=== PATIENT | male | born 1965 | race Caucasian/White ===

== ENCOUNTER 2017-01-20 08:33 | Outpatient (CLI) | payer MEDICARE, MEDICAID ==
--- NOTE | 2017-01-20 20:02 | XRAY Report ---
EXAM: RIGHT CALCANEUS RADIOGRAPHY EXAM DATE: 01/20/2017 09:09 a.m. CLINICAL HISTORY: Pain with shoveling. COMPARISON: None. TECHNIQUE: 2 views. FINDINGS: Bones: No traumatic or destructive bony abnormalities. Posterior calcaneal enthesophyte noted. Joints: Normal. No subluxations. Soft Tissues: Normal. No soft tissue swelling. IMPRESSION: Posterior enthesophyte, otherwise unremarkable calcaneus radiography. [facility] Referring Provider Line: [phone] SITE ID: [id number]
== END 2017-01-20 08:34 | disposition home or self-care (01) ==
LOC: DI 08:33
PROVIDERS: ATTEND Family Medicine
DX: M77.31 Calcaneal spur, right foot (principal)

== ENCOUNTER 2017-05-10 11:31 | Outpatient (CLI) | payer MEDICARE, MEDICAID ==
--- NOTE | 2017-05-11 10:40 | XRAY Report ---
ABDOMEN: 05/10/2017 INDICATION: Abdominal bloating and left lower quadrant tenderness. TECHNIQUE: Two frontal views of the abdomen. FINDINGS: Normal bowel gas pattern. No gross free air on frontal views only. No abnormal calcifications. Bones appear grossly unremarkable. IMPRESSION: NO ACUTE ABDOMINAL FINDINGS. JOB #: [id number] EXT JOB #: [id number] [facility]
== END 2017-05-10 11:32 | disposition home or self-care (01) ==
LOC: DI 11:31
PROVIDERS: ATTEND Family Medicine
DX: R10.814 Left lower quadrant abdominal tenderness (principal); R14.0 Abdominal distension (gaseous)
CPT/HCPCS: 74000

== ENCOUNTER 2017-06-14 21:01 | Outpatient (CLI) | payer MEDICARE, MEDICAID ==
--- NOTE | 2017-06-14 22:04 | Ultrasound Report ---
EXAM: LEFT LOWER EXTREMITY VENOUS ULTRASOUND EXAM DATE: 06/14/2017 09:55 PM. CLINICAL HISTORY: ACUTE ON CHRONIC LEFT LEG EDEMA. NEW ONSET PAIN. COMPARISON: None. TECHNIQUE: Real-time sonographic vascular imaging was performed by the banner painter through the lower extremity utilizing both color-flow and Doppler spectral analysis. Multiple charter representative static magdalena ges were saved for review. FINDINGS: Common Femoral Vein (CFV): Normal. CFV-GSV Junction: Normal. Profunda Femoral Vein (PFV): Normal. Femoral Vein (FV) Prox: Normal. Femoral Vein (FV) Mid: Normal. Femoral Vein (FV) Dist: Normal. Popliteal Vein: Normal. Posterior Tibial Veins: Not well seen. Peroneal Veins: Not well seen. Other: Subcutaneous edema in the calf. IMPRESSION: No evidence for deep venous thrombosis. [facility] Referring Provider Line: [phone] SITE ID: [id number]
== END 2017-06-14 21:02 | disposition home or self-care (01) ==
LOC: DI 21:01
PROVIDERS: ATTEND Family Medicine
DX: R60.0 Localized edema (principal); M79.605 Pain in left leg

== ENCOUNTER 2017-07-17 09:18 | Outpatient (CLI) | payer MEDICARE, MEDICAID | END 2017-07-17 09:19 | disposition home or self-care (01) | LOC: DI 09:18 | PROVIDERS: ATTEND Internal Medicine Cardiovascular Disease | DX: Z01.810 Encounter for preprocedural cardiovascular examination (principal); R60.0 Localized edema; I51.7 Cardiomegaly | CPT/HCPCS: 93306 ==

== ENCOUNTER 2017-07-19 10:53 | Outpatient (CLI) | payer MEDICARE, MEDICAID ==
[2017-07-19 11:26] LABS: CALCIUM 9.7 mg/dL (8.5-10.3)
== END 2017-07-19 10:54 | disposition home or self-care (01) ==
LOC: LAB 10:53
PROVIDERS: ATTEND Internal Medicine Cardiovascular Disease
DX: Z79.899 Other long term (current) drug therapy (principal)
CPT/HCPCS: 36415; 80048

== ENCOUNTER 2017-08-19 01:41 | Emergency (ER) | payer MEDICARE, MEDICAID ==
[2017-08-19] MEDS ORDERED: LORazepam 0.5 MG TABLET PO STA (01:54)
[2017-08-19] MEDS ORDERED: DEXAMETHASONE 10 MG/ML VIAL PO STA (01:54)
[2017-08-19] MEDS ORDERED: CHERRY SYRUP 10 ML UDC PO ONE (02:13)
[2017-08-19 02:38] VITALS: BP 152/107
--- NOTE | 2017-08-19 02:40 | CT Preliminary Report ---
Exam: CT CERVICAL SPINE W/O IMPRESSION: 1. Expected postsurgical changes after C3-C5 anterior fusion with mild prevertebral edema, likely rel ated to recent surgery. 2. No evidence of hardware failure or loosening. 3. No acute cervical spine fracture. [facility] SITE ID: [id number]
--- NOTE | 2017-08-19 02:40 | XRAY Report ---
EXAM: CHEST RADIOGRAPHY EXAM DATE: 08/19/2017 02:28 AM. CLINICAL HISTORY: Dyspnea, surgery yesterday with intubation. COMPARISON: 05/10/2015. TECHNIQUE: 1 view. FINDINGS: Lungs/Pleura: No focal opacities evident. No pleural effusion. No pneumothorax. Mediastinum: Within exam limitations, the cardiomediastinal contour is normal. Other: None. IMPRESSION: Stable negative single view chest. [facility] Referring Provider Line: [phone] SITE ID: [id number]
--- NOTE | 2017-08-19 02:45 | CT Report ---
EXAM: CT CERVICAL SPINE WITHOUT CONTRAST DATE: 08/19/2017 02:27 AM. HISTORY: Neck pain, status post surgery. COMPARISONS: None. TECHNIQUE: Thin-section axial images were acquired of the cervical spine without contrast. Post-proce ssing: Coronal and sagittal reformats. Other: None. In accordance with CT protocol optimization, one or more of the following dose reduction techniques w ere utilized for this exam: automated exposure control, adjustment of mA and/or KV based on patient s ize, or use of iterative reconstructive technique. FINDINGS: Alignment: The normal cervical lordosis is straightened, as expected after surgery. No scoliosis or s pondylolisthesis is appreciated. Bones: No acute cervical spine fracture is identified. Anterior fusion changes are present from C3 th rough C5 without evidence of hardware failure or loosening. Interspace Levels/Facets: C1-C2: Unremarkable. C2-C3: Moderate bilateral foraminal narrowing is present due to facet arthropathy. The spinal canal i s patent. C3-C4: The spinal canal is patent. There is severe bilateral foraminal narrowing due to uncovertebral hypertrophy. C4-C5: There is severe left and mild right foraminal narrowing due to uncovertebral hypertrophy. The spinal canal is patent. C5-C6: Mild left frontal narrowing is present due to uncovertebral hypertrophy. The spinal canal and right foramen are patent. C6-C7: Unremarkable. C7-T1: Bilateral facet arthropathy is present without spinal canal or foraminal stenosis. Musculature: Normal. No fatty atrophy. Other: Mild prevertebral edema is noted, likely related to recent surgery. The lung apices are clear. IMPRESSION: 1. Expected postsurgical changes after C3 through C5 anterior fusion with mild prevertebral edema, li capri related to recent surgery. 2. No evidence of hardware failure or loosening. 3. No acute cervical spine fracture. [facility] Referring Provider Line: [phone] SITE ID: [id number]
--- NOTE | 2017-08-19 02:51 | ED Physician Documentation ---
PD HPI NECK PAIN - Stated complaint Stated Complaint: PAIN S/P NECK SURGERY - Chief complaint Chief Complaint: General - History obtained from History obtained from: Patient, Family - History of Present Illness Timing - onset: Yesterday Timing - details: Gradual onset, Still present Quality: Pain, Aching Worsened by: Movement, Palpation Similar symptoms before: Work up / diagnostics, Treatment Recently seen: Surgery - Additional information Additional information: Patient is a 52 year old male presenting to the emergency department for neck pain and anxiety. Patient had multiple bone spurs on his cervical spine removed the day before. Patient spent a night in the hospital and was discharged home. Patient has had multiple surgeries and has a high pain tolerance. patient states that he has been taking up to 6 mg of dilaudid at a time. Patient states that he still has pain and has a dry mouth and trouble breathing. Patient denies any new trauma or accidents. Upon initial evaluation in the emergency department patient is alert but anxious. Review of Systems Constitutional: denies: Fever, Chills Eyes: reports: Reviewed and negative Ears: reports: Reviewed and negative Nose: reports: Reviewed and negative Throat: reports: Sore throat Cardiac: denies: Chest pain / pressure, Palpitations Respiratory: reports: Dyspnea. denies: Wheezing GI: denies: Nausea, Vomiting : reports: Reviewed and negative Skin: reports: Laceration (s) Musculoskeletal: reports: Neck pain Neurologic: denies: Generalized weakness, Focal weakness, Numbness Psychiatric: reports: Anxiety PD PAST MEDICAL HISTORY - Past Medical History Cardiovascular: Atrial fibrillation Respiratory: None Neuro: None Endocrine/Autoimmune: None GI: None : None HEENT: None Psych: None Musculoskeletal: None Derm: None - Past Surgical History Past Surgical History: No Ortho: Knee replacement Cardiovascular: Other - Present Medications Home Medications: Ambulatory Orders Medication Instructions Recorded Confirmed Ibuprofen 600 mg PO TID #20 tablet 05/10/15 Methocarbamol [Robaxin] 500 mg PO Q6H PRN #25 tablet 05/10/15 Dextroamphetamine/Amphetamine 1 tab PO BID 08/19/17 08/19/17 [Adderall 20 mg Tablet] Furosemide [Lasix] 1 tab PO QPM 08/19/17 08/19/17 Furosemide [Lasix] 2 tab PO DAILY 08/19/17 08/19/17 HYDROmorphone [Dilaudid] 6 mg PO Q8HR PRN 08/19/17 08/19/17 Metformin HCl 1 tab PO BID 08/19/17 08/19/17 Oxycodone HCl 5 mg PO BID #6 capsule 08/19/17 - Allergies Allergies/Adverse Reactions: Allergies Allergy/AdvReac Type Severity Reaction Status Date / Time No Known Drug Allergies Allergy Verified 08/19/17 01:55 - Social History Does the pt smoke?: Yes Smoking Status: Current every day smoker Does the pt drink ETOH?: Yes Does the pt have substance abuse?: No - Immunizations Immunizations are current?: Yes PD ED PE NORMAL - Vitals Vital signs reviewed: Yes - General General: Alert and oriented X 3 - Cardiac Cardiac: No murmur - Respiratory Respiratory: No respiratory distress - Abdomen Abdomen: Soft - Extremities Extremities: No deformity - Neuro Neuro: Alert and oriented X 3, No motor deficit, Normal speech Eye Opening: Spontaneous PD ED PE EXPANDED - General General: Alert, Anxious, In Pain - HEENT HEENT: Dry mucous membranes, Pharynx normal. No: Pharyngeal erythema - Neck Neck: Soft tissue TTP, Other (anterior surgical site covered with steri strips, no bleeding or surrounding erythema. ) - Psych Psych: Anxious Results - Vitals Vitals: Vital Signs - 24 hr 08/19/17 08/19/17 08/19/17 01:45 01:51 02:37 Temperature 36.1 C L Heart Rate 105 H 86 99 Respiratory 24 24 24 Rate Blood Pressure 145/104 H 186/109 H 152/107 H O2 Saturation 98 90 L 94 Oxygen O2 Source Nasal cannula Oxygen Flow Rate 4 - Rads (name of study) ct cervical spine Radiology: Final report received (post surgical changes, no other acute findings ) chest x-ray Radiology: Final report received (no acute disease process) PD MEDICAL DECISION MAKING - ED course Complexity details: reviewed old records, reviewed results, re-evaluated patient , considered differential, d/w patient, d/w family ED course: Patient was seen and examined at bedside. Patient was anxious and diaphoretic. Patient's partner stated that the patient does have a history of anxiety. patient was treated with ativan 0.5mg and imaging was ordered. Patient was placed on supplemental oxygen. Patient's partner stated that the patient does have JENNIFER and whenhe lies down his O2 sats range in the high 80s and low 90s. Patient's imaging was within normal limits. Patient was treated with dilaudid IM. Patient was given a few pain medications to go home with. Family stated that they would follow up with the surgical team tomorrow. Patient required no further inpatient work up and was stable for discharge with outpatient followup. Departure - Departure Disposition: Home, Self Care Clinical Impression: Neck pain Condition: Good Instructions: Fusion Cervical Dc Follow-Up: Rogers Trevino MD [Primary Care Provider] - Tomorrow Prescriptions: Oxycodone HCl 5 mg PO BID #6 capsule Comments: Your images were within normal limits. You were treated with dilaudid here in the emergency department and oxycodone to go home with. It is important that you call your surgeon tomorrow for further pain management. You may return to the emergency department at any time for new, worsening or uncontrollable symptoms.
[2017-08-19] MEDS ORDERED: HYDROmorphone 1 MG/ML SYRINGE IM STA (03:02)
[2017-08-19] MEDS ORDERED: oxyCODONE 5 MG TABLET PO STA (03:03)
== END 2017-08-19 03:23 | disposition home or self-care (01) ==
LOC: ED 01:41
DX: M54.2 Cervicalgia (principal); F41.9 Anxiety disorder, unspecified; I48.91 Unspecified atrial fibrillation; Z98.1 Arthrodesis status; F17.200 Nicotine dependence, unspecified, uncomplicated
CPT/HCPCS: 71045; 72125; 96372; 99283; 99284; A9270; J1170

== ENCOUNTER 2017-08-25 00:23 | Outpatient (CLI) | payer MEDICARE, MEDICAID | END 2017-08-25 00:24 | disposition critical access hospital (66) | LOC: EMS 00:23 | PROVIDERS: ATTEND Surgery | DX: R40.2211 Coma scale, best verbal response, none, in the field [EMT or ambulance] (principal); R73.9 Hyperglycemia, unspecified | CPT/HCPCS: A0425; A0427 ==

== ENCOUNTER 2017-08-25 00:51 | Emergency (ER) | payer MEDICARE, MEDICAID ==
--- NOTE | 2017-08-25 01:06 | ED Physician Documentation ---
PD HPI OVERDOSE - Stated complaint Stated Complaint: Poss OD - History obtained from History obtained from: Patient, Family, EMS - History of Present Illness Timing - onset: Today Subtance(s) ingested: Multiple, Narcotic, Benzo Associated symptoms: Resp depression, Decreased responsiveness. 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 Patient had surgery on his cervical spine about two weeks ago. Since that time patient has had a hard time controlling his pain. Tonight patient states that he was in a lot of pain and accidentally took to many medications. called ems because patient was diaphoretic and sonorous. Patient was hyposic on room air and was treated with a total of 0.8mg of narcan. Upon initial evaluation in the emergency department patient was awake, alert and oriented but anxious. Review of Systems Constitutional: denies: Fever, Chills Eyes: reports: Reviewed and negative Ears: reports: Reviewed and negative Nose: reports: Reviewed and negative Throat: reports: Reviewed and negative Cardiac: denies: Chest pain / pressure, Palpitations Respiratory: reports: Dyspnea. denies: Cough, Wheezing GI: reports: Nausea. denies: Abdominal Pain, Vomiting, Constipation, Diarrhea : reports: Reviewed and negative Skin: reports: Other (diaphoretic) Musculoskeletal: reports: Neck pain Neurologic: denies: Generalized weakness, Focal weakness, Numbness Psychiatric: reports: Anxiety PD PAST MEDICAL HISTORY - Past Medical History Cardiovascular: Atrial fibrillation Respiratory: None Neuro: None Endocrine/Autoimmune: None GI: None : None HEENT: None Psych: None Musculoskeletal: None Derm: None - Past Surgical History Past Surgical History: No Ortho: Knee replacement Cardiovascular: Other - Present Medications Home Medications: Ambulatory Orders Medication Instructions Recorded Confirmed Dextroamphetamine/Amphetamine 1 tab PO BID 08/19/17 08/19/17 [Adderall 20 mg Tablet] Furosemide [Lasix] 1 tab PO QPM 08/19/17 08/19/17 Furosemide [Lasix] 2 tab PO DAILY 08/19/17 08/19/17 HYDROmorphone [Dilaudid] 6 mg PO Q8HR PRN 08/19/17 08/19/17 Metformin HCl 1 tab PO BID 08/19/17 08/19/17 Oxycodone HCl 5 mg PO Q4HR PRN 08/25/17 08/25/17 - Allergies Allergies/Adverse Reactions: Allergies Allergy/AdvReac Type Severity Reaction Status Date / Time No Known Drug Allergies Allergy Verified 08/25/17 01:03 - Social History Does the pt smoke?: Yes Smoking Status: Current every day smoker Does the pt drink ETOH?: Yes Does the pt have substance abuse?: No - Immunizations Immunizations are current?: Yes PD ED PE EXPANDED - General General: Disheveled, poorly kept, Other (diaphoretic and ill appearing) - Respiratory Respiratory: Labored, Gasping, Accessory mm use, Rhonchi, Decreased breath sounds, Right upper lobe, Right middle lobe, Right lower lobe, Left upper lobe, Left lower lobe - Derm Derm: Diaphoretic - GCS Eye Opening: To Voice Motor: Obeys Commands Verbal: Oriented Total: 14 - Psych Psych: Anxious Results - Vitals Vitals: Vital Signs - 24 hr 08/25/17 08/25/17 08/25/17 00:53 01:30 02:00 Temperature 36.1 C L Heart Rate 125 H 114 H 110 H Respiratory 24 25 H 21 Rate Blood Pressure 160/80 H 156/88 H 156/88 H O2 Saturation 93 91 L 90 L 08/25/17 08/25/17 08/25/17 02:22 02:32 02:44 Temperature 36.7 C Heart Rate 109 H 104 H Respiratory 16 Rate Blood Pressure 153/97 H O2 Saturation 90 L 08/25/17 03:07 Temperature Heart Rate 108 H Respiratory 24 Rate Blood Pressure 135/90 H O2 Saturation 91 L Oxygen O2 Source Non-rebreather mask Oxygen Flow Rate 10 - Labs Labs: Laboratory Tests 08/25/17 08/25/17 08/25/17 01:20 01:20 01:20 WBC 21.1 H RBC 6.36 H Hgb 17.3 Hct 55.1 H MCV 86.7 MCH 27.1 MCHC 31.3 L RDW 16.0 H Plt Count 277 MPV 7.7 Neut # 17.0 H Lymph # 1.8 [place] # 2.1 H Eos # 0.1 Baso # 0.1 Absolute Nucleated RBC 0.04 Nucleated RBC % 0.2 Manual Slide Review Indicated Platelet Estimate NORMAL (130-450,000) Platelet Morphology 1+ LARGE PLATELETS RBC Morph Micro Appear 1+ POLYCHROMASIA VBG pH 7.347 VBG pCO2 57.2 H VBG pO2 77.2 H VBG HCO3 30.7 H VBG Total CO2 32.4 H VBG O2 Saturation 94.9 H VBG Base Excess 3.0 H Sodium 132 L Potassium 4.1 Chloride 88 L Carbon Dioxide 31 Anion Gap 13.0 BUN 37 H Creatinine 1.9 H Estimated GFR (MDRD) 38 L Glucose 440 H Lactic Acid Calcium 8.8 Total Bilirubin 0.7 AST 114 H ALT 148 H Alkaline Phosphatase 70 Troponin I B-Natriuretic Peptide Total Protein 6.8 Albumin 3.9 Globulin 2.9 Albumin/Globulin Ratio 1.3 Lipase 54 H Serum Ketones NEGATIVE 08/25/17 08/25/17 08/25/17 01:20 01:20 02:10 WBC RBC Hgb Hct MCV MCH MCHC RDW Plt Count MPV Neut # Lymph # [place] # Eos # Baso # Absolute Nucleated RBC Nucleated RBC % Manual Slide Review Platelet Estimate Platelet Morphology RBC Morph Micro Appear VBG pH VBG pCO2 VBG pO2 VBG HCO3 VBG Total CO2 VBG O2 Saturation VBG Base Excess Sodium Potassium Chloride Carbon Dioxide Anion Gap BUN Creatinine Estimated GFR (MDRD) Glucose Lactic Acid 2.0 Calcium Total Bilirubin AST ALT Alkaline Phosphatase Troponin I 0.21 B-Natriuretic Peptide 664 H Total Protein Albumin Globulin Albumin/Globulin Ratio Lipase Serum Ketones - Rads (name of study) chest x-ray Radiology: Final report received, EMP read contemporaneously (read by radiology as normal but it appears to have patchy infiltrates) PD MEDICAL DECISION MAKING - ED course Complexity details: reviewed old records, reviewed results, re-evaluated patient , considered differential, d/w patient, d/w family, d/w banking consultant ED course: Patient was seen and examined at bedside. Patient was diaphoretic and tachycardic. patient was continued on the oxygen face mask. IV access was gained and labs were drawn. chest x-ray was performed. Chest x-ray was read as negative but patient appeared to have bilateral infiltrates as well as a leukocytosis of 21. patient was started on zosyn and levaquin due to the fear of hospital acquired pneumonia. Patient was treated with additional narcan. Patient's labs also revealed acute kidney injury with a creatinine of 1.9 base is 1. Patient was started on bipap and a nitro drip. Patient required inpatient ICU admission but there were no available ICU beds in the hospital. [facility], where the patient had his surgery was contacted and the case was discussed with Dr. Oviedo who accepted the patient in transfer. Patient was placed on a narcan drip and transferred in critical condition. Departure - Departure Disposition: 02 Transfer Acute Care Hosp Clinical Impression: Hypoxia, Pneumonia Condition: Critical
[2017-08-25 01:34] LABS: BASOPHILS # (AUTO) 0.1 10^3/uL (0.0-0.1); BASOPHILS % (AUTO) 0.3 %; EOSINOPHILS # (AUTO) 0.1 10^3/uL (0.0-0.7); EOSINOPHILS % (AUTO) 0.3 %; HGB - HEMOGLOBIN 17.3 g/dL (14.0-18.0); LYMPHOCYTES # (AUTO) 1.8 10^3/uL (1.5-3.5); LYMPHOCYTES % (AUTO) 8.4 %; MEAN CORPUSCULAR HEMOGLOBIN 27.1 pg (27.0-31.0); MEAN CORPUSCULAR HGB CONC 31.3 g/dL (32.0-36.0); MEAN CORPUSCULAR VOLUME 86.7 fL (80.0-94.0); MEAN PLATELET VOLUME 7.7 fL (7.4-11.4); MONOCYTES # (AUTO) 2.1 10^3/uL (0.0-1.0); MONOCYTES % (AUTO) 10.2 %; NEUTROPHILS % (AUTO) 80.8 %; PLT - PLATELET COUNT 277 10^3/uL (130-450); RED BLOOD COUNT 6.36 10^6/uL (4.70-6.10); WHITE BLOOD COUNT 21.1 x10^3/uL (4.8-10.8)
[2017-08-25 01:35] LABS: KETONES, SERUM (ACETEST) NEGATIVE (NEGATIVE); VBG PCO2 57.2 mmHg (41-51); VBG PH 7.347 (7.31-7.41)
[2017-08-25 01:36] LABS: VBG PO2 77.2 mmHg (25-47); VBG TOTAL CO2 32.4 mmol/L (24-29)
--- NOTE | 2017-08-25 01:39 | XRAY Preliminary Report ---
Exam: XR CHEST 1 VIEW X-RAY IMPRESSION: Hypoventilatory single view chest with cardiomegaly but without definite acute process. [id number]
[2017-08-25 01:40] LABS: ALBUMIN 3.9 g/dL (3.2-5.5); ALBUMIN/GLOBULIN RATIO 1.3 (1.0-2.2); ALKALINE PHOSPHATASE 70 IU/L (42-121); ALT ALANINE AMINOTRANSFERASE 148 IU/L (10-60); AST ASPARTATE AMINOTRANSFERASE 114 IU/L (10-42); BILIRUBIN,TOTAL 0.7 mg/dL (0.2-1.0); BUN - BLOOD UREA NITROGEN 37 mg/dL (6-20); CALCIUM 8.8 mg/dL (8.5-10.3); CARBON DIOXIDE - CO2 31 mmol/L (21-32); CHLORIDE 88 mmol/L (101-111); CREATININE 1.9 mg/dL (0.6-1.2); GFR - MDRD 38 (>89); GLUCOSE 440 mg/dL (70-100); LIPASE 54 U/L (22-51); SODIUM 132 mmol/L (135-145); TOTAL PROTEIN 6.8 g/dL (6.7-8.2)
[2017-08-25] MEDS ORDERED: PIPERACILLIN/TAZOBACTAM 3.375 GM in SODIUM CHLORIDE 0.9% MINIBAG 100 ML IV STA (01:53)
[2017-08-25] MEDS ORDERED: NALOXONE 0.4 MG/ML VIAL ONE ×2 (01:54→03:03)
--- NOTE | 2017-08-25 01:55 | XRAY Report ---
EXAM: CHEST RADIOGRAPHY EXAM DATE: 08/25/2017 01:20 AM. CLINICAL HISTORY: Hypoxia, possible overdose. COMPARISON: 08/19/2017. TECHNIQUE: 1 view. FINDINGS: Lungs/Pleura: Low volumes. No definite pneumonia or edema. No gross pneumothorax or large effusion. Mediastinum: Mild cardiomegaly. No mediastinal shift. Other: Prior cervical surgery. IMPRESSION: Hypoventilatory single view chest with cardiomegaly but without definite acute process. [facility] Referring Provider Line: [phone] SITE ID: [id number]
[2017-08-25] MEDS ORDERED: NALOXONE 0.4 MG/ML VIAL IVP STA (02:16)
[2017-08-25 02:22] LABS: PLATELET ESTIMATE, MANUAL NORMAL (130-450,000) (NORMAL); PLATELET MORPHOLOGY 1+ LARGE PLATELETS (NORMAL); RBC MORPHOLOGY (MULTIPLE) 1+ POLYCHROMASIA (NORMAL)
[2017-08-25] MEDS ORDERED: NALOXONE 2 MG in SODIUM CHLORIDE 0.9% 495 ML IVP STA (02:50)
[2017-08-25] MEDS ORDERED: VANCOMYCIN INJ 1.5 GM in SODIUM CHLORIDE 0.9% 500 ML IV STA (03:09)
[2017-08-25] MEDS ORDERED: WATER FOR INJECTION,STERILE 20 ML ONE (03:22)
[2017-08-25] MEDS ORDERED: VANCOMYCIN 1 GM VIAL ONE (03:22)
[2017-08-25 03:41] VITALS: BP 114/87
== END 2017-08-25 03:49 | disposition short-term general hospital (02) ==
LOC: EDUNIT# → ED 00:51
DX: R09.02 Hypoxemia (principal); J18.9 Pneumonia, unspecified organism; F40.8 Other phobic anxiety disorders; N17.9 Acute kidney failure, unspecified; R00.0 Tachycardia, unspecified; F17.200 Nicotine dependence, unspecified, uncomplicated; Z96.659 Presence of unspecified artificial knee joint
CPT/HCPCS: 36415; 71045; 80053; 82009; 82803; 83605; 83690; 83880; 84484; 85025; 87040; 94660; 96365; 96374; 96375; 96376; 99284; J3370; 99285

== ENCOUNTER 2017-08-25 03:49 | Outpatient (CLI) | payer MEDICARE, MEDICAID | END 2017-08-25 03:50 | disposition short-term general hospital (02) | LOC: EMS 03:49 | PROVIDERS: ATTEND Surgery | DX: R09.02 Hypoxemia (principal) | CPT/HCPCS: A0425; A0426 ==

== ENCOUNTER 2017-09-06 16:22 | Emergency (ER) | payer MEDICARE, MEDICAID ==
[2017-09-06 16:55] VITALS: BP 125/90
--- NOTE | 2017-09-06 17:30 | XRAY Report ---
EXAM: RIGHT SHOULDER RADIOGRAPHY EXAM DATE: 09/06/2017 05:17 PM. CLINICAL HISTORY: Shoulder pain COMPARISON: None. TECHNIQUE: 3 views. FINDINGS: Bones: No fracture or focal bony lesion. Joints: No evidence of dislocation. There is moderate underlying glenohumeral degenerative disease. Soft Tissues: No unexpected soft tissue findings. IMPRESSION: No evidence of fracture or dislocation. [facility] Referring Provider Line: [phone] SITE ID: [id number]
--- NOTE | 2017-09-06 17:45 | ED Physician Documentation ---
PD HPI UPPER EXT INJURY - Stated complaint Stated Complaint: RT SHOULD PX/POST FALL 1 WEEK - Chief complaint Chief Complaint: Ext Problem - History obtained from History obtained from: Patient - History of Present Illness Location: Right, Shoulder Type of injury: Fall Where injury occurred: Other (hospital) Timing - onset: How many days ago (6) Worsened by: Moving, Palpating Associated symptoms: No: Weakness, Numbness Contributing factors: Prior ortho surgery (3 weeks status post cervical fusion by anterior approach.) - Additonal information Additional information: The patient is a 52-year-old male who complains of right shoulder pain. He is 3 weeks status post cervical fusion by anterior approach. He reports no pain in his neck currently. Postsurgery, however, he was overusing narcotic medication and had a hypoxic episode, requiring hospitalization. He states that while in the hospital he fell hitting his right shoulder against a door [address] scan of his shoulder at that time revealed no bony abnormality. He presents now because of continued pain that is worse with any movement of his right arm. He denies numbness or weakness. He is right-hand dominant. Review of Systems Constitutional: denies: Fever Nose: denies: Congestion Throat: denies: Sore throat Cardiac: denies: Chest pain / pressure Respiratory: denies: Dyspnea, Cough GI: denies: Abdominal Pain, Nausea, Vomiting : denies: Dysuria Skin: denies: Rash Musculoskeletal: reports: Joint pain (Right shoulder.) Neurologic: denies: Focal weakness, Numbness, Headache PD PAST MEDICAL HISTORY - Past Medical History Past Medical History: Yes Cardiovascular: Atrial fibrillation Respiratory: Sleep apnea Neuro: None Endocrine/Autoimmune: Type 2 diabetes GI: None : None HEENT: None Psych: None Musculoskeletal: None Derm: None - Past Surgical History Past Surgical History: Yes Ortho: Knee replacement, Spine surgery (3 weeks status post cervical fusion by anterior approach.) Cardiovascular: Other HEENT: Other - Present Medications Home Medications: Ambulatory Orders Medication Instructions Recorded Confirmed Dextroamphetamine/Amphetamine 1 tab PO BID 08/19/17 08/19/17 [Adderall 20 mg Tablet] Furosemide [Lasix] 1 tab PO QPM 08/19/17 08/19/17 Furosemide [Lasix] 2 tab PO DAILY 08/19/17 08/19/17 HYDROmorphone [Dilaudid] 6 mg PO Q8HR PRN 08/19/17 08/19/17 Metformin HCl 1 tab PO BID 08/19/17 08/19/17 Oxycodone HCl 5 mg PO Q4HR PRN 08/25/17 08/25/17 HYDROcod/ACETAM 5/325 [Vicodin 1 ea PO Q6H PRN #15 tablet 09/06/17 5/325] - Allergies Allergies/Adverse Reactions: Allergies Allergy/AdvReac Type Severity Reaction Status Date / Time No Known Drug Allergies Allergy Verified 09/07/17 03:07 - Social History Does the pt smoke?: Yes Smoking Status: Current every day smoker Does the pt drink ETOH?: Yes Does the pt have substance abuse?: No - Immunizations Immunizations are current?: Yes - POLST Patient has POLST: No PD ED PE NORMAL - Vitals Vital signs reviewed: Yes (Borderline hypertension initially.) - General General: Alert and oriented X 3, Other (Overweight and deconditioned.) - HEENT HEENT: Atraumatic, Moist mucous membranes, Pharynx benign - Neck Neck: No bony TTP, No adenopathy, No JVD, Other (Healed surgical scar in the left anterior neck.) - Cardiac Cardiac: RRR, No murmur - Respiratory Respiratory: Clear bilaterally - Abdomen Abdomen: Soft, Non tender, Other (Rotund abdomen.) - Back Back: No CVA TTP, No spinal TTP - Derm Derm: No rash - Extremities Extremities: No deformity, No edema, No calf tenderness / cord, Other (There is tenderness to palpation over the anterior aspect of the right shoulder at the acromioclavicular joint. He has limited ability to elevate the right arm secondary to pain. Distal neurovascular is intact.) - Neuro Neuro: Alert and oriented X 3, No motor deficit, No sensory deficit Results - Vitals Vitals: Oxygen O2 Source Room air - Rads (name of study) Right shoulder Radiology: Prelim report reviewed, EMP read contemporaneously, See rad report ( No evidence of fracture or dislocation.) PD MEDICAL DECISION MAKING - ED course Complexity details: reviewed old records, reviewed results, re-evaluated patient , considered differential, d/w patient ED course: The patient's presentation is most consistent with a type I acromioclavicular separation. There is no radiographic abnormality seen on x-ray of the right shoulder. Treatment in the emergency department included administration of an arm sling. He is being discharged with prescription for Vicodin, 15 tablets. I discussed with him the expected course of injury, symptomatic treatment and outpatient follow-up, as well as potentially worrisome signs or symptoms that should prompt reevaluation in the emergency department. Addendum: After the patient had been discharged, provider at [facility] called to inform us that this patient had been escorted from their clinic by police after he became disruptive when he was informed he would not be receiving a prescription for narcotic medication. Departure - Departure Disposition: Home, Self Care Clinical Impression: Separation of right acromioclavicular joint, type 1 Qualifiers: Encounter type: initial encounter Qualified Code(s): S43.101A - Unspecified dislocation of right acromioclavicular joint, initial encounter Condition: Stable Instructions: ED Sprain AC Joint Follow-Up: Rogers Trevino MD [Primary Care Provider] - Prescriptions: HYDROcod/ACETAM 5/325 [Vicodin 5/325] 1 ea PO Q6H PRN #15 tablet PRN Reason: Pain Comments: Wear the arm sling for comfort. Apply ice pack intermittently for the next 3 days. You can use ibuprofen, up to 800 mg 3 times daily for its anti-inflammatory effect. You can use Vicodin as prescribed if needed for pain. Follow up with your primary physician within 2 weeks. Call to schedule appointment. Return to the emergency room if you develop increasing pain, or otherwise worsening symptoms. Discharge Date/Time: 09/06/17 17:59
== END 2017-09-06 17:59 | disposition home or self-care (01) ==
LOC: ED 16:22
DX: S43.101A Unspecified dislocation of right acromioclavicular joint, initial encounter (principal); W01.198A Fall on same level from slipping, tripping and stumbling with subsequent striking against other object, initial encounter; Y92.230 Patient room in hospital as the place of occurrence of the external cause; Z98.1 Arthrodesis status; E11.9 Type 2 diabetes mellitus without complications; Z79.84 Long term (current) use of oral hypoglycemic drugs; F17.200 Nicotine dependence, unspecified, uncomplicated
CPT/HCPCS: 99283

== ENCOUNTER 2017-09-07 02:54 | Emergency (ER) | payer OTHER, MEDICARE, MEDICAID ==
--- NOTE | 2017-09-07 03:08 | ED Physician Documentation ---
History of Present Illness - Stated complaint Stated Complaint: FIT FOR CONFINEMENT - Chief complaint Chief Complaint: General - History obtained from History obtained from: Patient, Police - Additonal information Additional information: Patient is a 52 year old male with a history of chronic pain who was brought in by police for fit for confinement. Patient requires cpap at night so they needed and order written for it. Review of Systems Ten Systems: 10 systems reviewed and negative Musculoskeletal: reports: Neck pain, Back pain, Extremity pain, Joint pain PD PAST MEDICAL HISTORY - Past Medical History Cardiovascular: Atrial fibrillation Respiratory: None Neuro: None Endocrine/Autoimmune: None GI: None : None HEENT: None Psych: None Musculoskeletal: None Derm: None - Past Surgical History Past Surgical History: Yes Ortho: Knee replacement Cardiovascular: Other HEENT: Other - Present Medications Home Medications: Ambulatory Orders Medication Instructions Recorded Confirmed Dextroamphetamine/Amphetamine 1 tab PO BID 08/19/17 08/19/17 [Adderall 20 mg Tablet] Furosemide [Lasix] 1 tab PO QPM 08/19/17 08/19/17 Furosemide [Lasix] 2 tab PO DAILY 08/19/17 08/19/17 HYDROmorphone [Dilaudid] 6 mg PO Q8HR PRN 08/19/17 08/19/17 Metformin HCl 1 tab PO BID 08/19/17 08/19/17 Oxycodone HCl 5 mg PO Q4HR PRN 08/25/17 08/25/17 HYDROcod/ACETAM 5/325 [Vicodin 1 ea PO Q6H PRN #15 tablet 09/06/17 5/325] - Allergies Allergies/Adverse Reactions: Allergies Allergy/AdvReac Type Severity Reaction Status Date / Time No Known Drug Allergies Allergy Verified 09/07/17 03:07 - Social History Does the pt smoke?: Yes Smoking Status: Current every day smoker Does the pt drink ETOH?: Yes Does the pt have substance abuse?: No - Immunizations Immunizations are current?: Yes - POLST Patient has POLST: No PD ED PE NORMAL - Vitals Vital signs reviewed: Yes - General General: Alert and oriented X 3 - HEENT HEENT: Atraumatic - Cardiac Cardiac: RRR - Respiratory Respiratory: No respiratory distress - Abdomen Abdomen: Non distended - Derm Derm: Normal color - Neuro Neuro: Alert and oriented X 3, No motor deficit, Normal speech Eye Opening: Spontaneous Motor: Obeys Commands Verbal: Oriented GCS Score: 15 PD ED PE EXPANDED - General General: Alert, In Pain - Eyes Eyes: Other (mildly dilated pupils) - Neck Neck: Other (anterior scar) Results - Vitals Vitals: Vital Signs - 24 hr 09/07/17 09/07/17 03:00 03:17 Temperature 36.4 C L Heart Rate 101 H 98 Respiratory 18 19 Rate Blood Pressure 146/102 H 148/100 H O2 Saturation 97 100 Oxygen O2 Source Room air PD MEDICAL DECISION MAKING - ED course Complexity details: reviewed old records, reviewed results, re-evaluated patient , considered differential, d/w patient ED course: Patient was seen and examined at bedside. Patient was in no acute distress and complained only of his chronic pain. orders for his cpap were written. patient was fit for confinement. Departure - Departure Disposition: 01 Home, Self Care Clinical Impression: Neck pain Condition: Good Instructions: ED Neck Back Pain General Follow-Up: primary,care provider [Other] - Within 3 Days Comments: You will need to follow up with your doctor for your continual pain management. patient is fit for confinement. Discharge Date/Time: 09/07/17 03:18
[2017-09-07 03:18] VITALS: BP 148/100
== END 2017-09-07 03:18 | disposition home or self-care (01) ==
LOC: ED 02:54
DX: M54.2 Cervicalgia (principal); G89.29 Other chronic pain; Z01.89 Encounter for other specified special examinations; Z96.659 Presence of unspecified artificial knee joint; F17.200 Nicotine dependence, unspecified, uncomplicated
CPT/HCPCS: 36415; 99282; 99283

== ENCOUNTER 2017-09-07 03:12 | Outpatient (CLI) | payer OTHER, MEDICARE, MEDICAID | END 2017-09-07 03:13 | disposition home or self-care (01) | LOC: LAB 03:12 | PROVIDERS: ATTEND Pathology Blood Banking & Transfusion Medicine | DX: Z01.89 Encounter for other specified special examinations (principal) | CPT/HCPCS: 36415 ==

== ENCOUNTER 2019-10-30 08:58 | Emergency (ER) | payer MEDICARE, MEDICAID ==
[2019-10-30 09:48] LABS: BASOPHILS # (AUTO) 0.1 10^3/uL (0.0-0.1); BASOPHILS % (AUTO) 0.6 %; EOSINOPHILS # (AUTO) 0.1 10^3/uL (0.0-0.7); EOSINOPHILS % (AUTO) 0.6 %; LYMPHOCYTES # (AUTO) 1.9 10^3/uL (1.5-3.5); LYMPHOCYTES % (AUTO) 11.9 %; MEAN CORPUSCULAR HEMOGLOBIN 29.6 pg (27.0-31.0); MEAN CORPUSCULAR HGB CONC 34.2 g/dL (32.0-36.0); MEAN CORPUSCULAR VOLUME 86.4 fL (80.0-94.0); MEAN PLATELET VOLUME 10.1 fL (7.4-11.4); MONOCYTES # (AUTO) 1.5 10^3/uL (0.0-1.0); MONOCYTES % (AUTO) 9.6 %; NEUTROPHILS # (AUTO) 12.1 10^3/uL (1.5-6.6); NEUTROPHILS % (AUTO) 76.7 %; PLT - PLATELET COUNT 246 10^3/uL (130-450); RED BLOOD COUNT 6.09 10^6/uL (4.70-6.10); RED CELL DISTRIBUTION WIDTH 12.5 % (12.0-15.0); WHITE BLOOD COUNT 15.8 x10^3/uL (4.8-10.8)
--- NOTE | 2019-10-30 09:49 | ED Physician Documentation ---
PD HPI ABD PAIN - Stated complaint Stated Complaint: L SIDE ABD PX - Chief complaint Chief Complaint: Abd Pain - History obtained from History obtained from: Patient - History of Present Illness Timing - onset: How many days ago (4) Timing - duration: Days (4) Timing - details: Gradual onset, Still present Quality: Sharp, Pain Location: LUQ Improved by: Laying still Worsened by: Breathing, Position, Palpation Associated symptoms: Constipation. No: Fever, Nausea, Hematochezia Similar symptoms before: Has not had sx before Recently seen: Clinic - Additional information Additional information: 54-year-old male on narcotic chronically has developed constipation about 4 days ago and with this he is developed some pain in the left upper quadrant of his abdomen. This was only temporarily better when he drank some milk and it has returned and despite using laxatives and enema the patient has no significant stool output. He did have a tiny out yesterday. He has not had vomiting. He does not otherwise feel ill. He was seen in the clinic today and the provider asked him to come to the emergency department for further evaluation of left upper quadrant tenderness with concern of obstruction or other process. He has taken some ibuprofen for the pain in his shoulder. Review of Systems Constitutional: denies: Fever, Myalgias Eyes: denies: Decreased vision Ears: denies: Ear pain Nose: denies: Rhinorrhea / runny nose, Congestion Throat: denies: Sore throat Cardiac: denies: Chest pain / pressure, Palpitations Respiratory: denies: Dyspnea, Cough GI: reports: Abdominal Pain, Constipation. denies: Nausea : denies: Dysuria, Frequency Skin: denies: Rash Musculoskeletal: reports: Joint pain. denies: Neck pain, Back pain Neurologic: denies: Generalized weakness, Focal weakness, Numbness PD PAST MEDICAL HISTORY - Past Medical History Cardiovascular: Atrial fibrillation Respiratory: None Endocrine/Autoimmune: None GI: None : None HEENT: None Psych: None Musculoskeletal: None Derm: None - Past Surgical History Past Surgical History: Yes Ortho: Knee replacement Cardiovascular: Other HEENT: Other - Present Medications Home Medications: Ambulatory Orders Medication Instructions Recorded Confirmed Dextroamphetamine/Amphetamine 1 tab PO BID 08/19/17 08/19/17 [Adderall 20 mg Tablet] Furosemide [Lasix] 1 tab PO QPM 08/19/17 08/19/17 Furosemide [Lasix] 2 tab PO DAILY 08/19/17 08/19/17 HYDROmorphone [Dilaudid] 6 mg PO Q8HR PRN 08/19/17 08/19/17 Metformin HCl 1 tab PO BID 08/19/17 08/19/17 Oxycodone HCl 5 mg PO Q4HR PRN 08/25/17 08/25/17 HYDROcod/ACETAM 5/325 [Vicodin 1 ea PO Q6H PRN #15 tablet 09/06/17 5/325] - Allergies Allergies/Adverse Reactions: Allergies Allergy/AdvReac Type Severity Reaction Status Date / Time No Known Drug Allergies Allergy Verified 10/30/19 09:15 - Social History Does the pt smoke?: Yes Smoking Status: Current every day smoker Does the pt drink ETOH?: Yes Does the pt have substance abuse?: No - Immunizations Immunizations are current?: Yes - POLST Patient has POLST: No PD ED PE NORMAL - Vitals Vital signs reviewed: Yes (tachycardic and hypertensive ) - General General: Alert and oriented X 3, No acute distress, Well developed/nourished - HEENT HEENT: Atraumatic, PERRL, EOMI - Neck Neck: Supple, no meningeal sign, No bony TTP - Cardiac Cardiac: RRR, No murmur - Respiratory Respiratory: No respiratory distress, Clear bilaterally - Abdomen Abdomen: Normal bowel sounds, Soft, Other (obese with LUQ tenderness to deep palpaiton which is reproducible. 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, No motor deficit, No sensory deficit, Normal speech Eye Opening: Spontaneous Motor: Obeys Commands Verbal: Oriented GCS Score: 15 - Psych Psych: Normal mood, Normal affect Results - Vitals Vitals: Vital Signs - 24 hr 10/30/19 10/30/19 10/30/19 09:15 10:00 11:35 Temperature 37.8 C H 37 C Heart Rate 122 H 90 118 H Respiratory 24 20 16 Rate Blood Pressure 149/108 H 168/106 H 147/82 H O2 Saturation 92 96 95 Oxygen O2 Source Room air - Labs Labs: Laboratory Tests 05/10/30/19 10/30/19 09:38 09:38 10:12 WBC 15.8 H RBC 6.09 Hgb 18.0 Hct 52.6 H MCV 86.4 MCH 29.6 MCHC 34.2 RDW 12.5 Plt Count 246 MPV 10.1 Neut # (Auto) 12.1 H Lymph # (Auto) 1.9 [place] # (Auto) 1.5 H Eos # (Auto) 0.1 Baso # (Auto) 0.1 Absolute Nucleated RBC 0.00 Nucleated RBC % 0.0 Sodium 131 L Potassium 4.1 Chloride 92 L Carbon Dioxide 27 Anion Gap 12.0 BUN 19 Creatinine 0.9 Estimated GFR (MDRD) 89 Glucose 344 H Calcium 9.8 Total Bilirubin 1.2 H AST 13 ALT 24 Alkaline Phosphatase 77 Total Protein 8.1 Albumin 4.0 Globulin 4.1 Albumin/Globulin Ratio 1.0 Lipase 45 Urine Color DARK YELLOW Urine Clarity CLEAR Urine pH 5.5 Ur Specific [place] 1.025 Urine Protein 100 H Urine Glucose (UA) >=1000 H Urine Ketones 40 H Urine Occult Blood TRACE-INTA Urine Nitrite NEGATIVE Urine Bilirubin NEGATIVE Urine Urobilinogen 1 (NORMAL) Ur Leukocyte Esterase NEGATIVE Urine RBC 0-5 Urine WBC 0-3 Ur Squamous Epith Cells NONE SEEN Urine Bacteria Rare Ur Microscopic Review INDICATED Urine Culture Comments NOT INDICATED - Rads (name of study) CT ab/pel w Radiology: Prelim report reviewed (Impression: Findings consistent with pancreatitis at the tail of the pancreas. Recommend CT follow-up when the patient's clinical symptoms have improved, to assure resolution of the radiographic findings. Moderate volume of feces throughout the colon. Fatty infiltration of the liver. Layer of radiodense material in the proximal dependent gallbladder, either sludge or granular stones. No sign of cholecystitis or bile duct dilation. Other chronic findings as described in the report.), EMP read indepedently, See rad report PD MEDICAL DECISION MAKING - ED course Complexity details: reviewed results, re-evaluated patient, considered differential, d/w patient ED course: 54-year-old male with left upper quadrant abdominal pain has mild tenderness on examination and has been uncomfortable. He has not had relief of his constipation. The CT scan done here today demonstrates some inflammation at the tail of the pancreas. I have identified this on the scan myself and there is some inflammation associated with this and I do not see any evidence of a mass.His lipase is normal he is not vomiting there is no evidence of pancreatitis other than on the scan. He is administered an oil retention enema without result and then he is administered a higher enema with good results and resolution of symptoms. We will have to have his abdomen reimaged at some point. Departure - Departure Disposition: Home, Self Care Clinical Impression: Constipation Qualifiers: Constipation type: slow transit constipation Qualified Code(s): K59.01 - Slow transit constipation Condition: Stable Instructions: ED Constipation Follow-Up: Rogers Trevino MD [Primary Care Provider] - Comments: Today on your CAT scan there was appearance of inflammation at the tail of the pancreas. Your clinical presentation does not suggest pancreatitis and your biomarkers for pancreatitis are not elevated. The expectation is that you will do fine--- like you were just constipated. The radiologist's recommended a repeat CT scan at some point to reevaluate this area.
[2019-10-30 09:59] LABS: BILIRUBIN,TOTAL 1.2 mg/dL (0.2-1.0); CALCIUM 9.8 mg/dL (8.5-10.3); CREATININE 0.9 mg/dL (0.6-1.2); TOTAL PROTEIN 8.1 g/dL (6.7-8.2)
[2019-10-30] MEDS ORDERED: IOVERSOL 320 100 ML VIAL IVP ONE ×2 (10:23→14:29)
[2019-10-30 11:14] LABS: GLUCOSE, URINE (UA) >=1000 mg/dL (NEGATIVE); KETONES,URINE (UA) 40 mg/dL (NEGATIVE); LEUKOCYTE ESTERASE, URINE NEGATIVE (NEGATIVE); NITRITE,URINE NEGATIVE (NEGATIVE); OCCULT BLOOD,URINE TRACE-INTA (NEGATIVE); PH,URINE 5.5 PH (5.0-7.5); PROTEIN,URINE 100 mg/dL (NEGATIVE); UROBILINOGEN,URINE 1 (NORMAL) E.U./dL (NORMAL)
[2019-10-30 11:18] LABS: BILIRUBIN,URINE NEGATIVE (NEGATIVE); CLARITY,URINE CLEAR (CLEAR); ICTOTEST,URINE NEGATIVE
[2019-10-30 11:36] LABS: BACTERIA,URINE Rare /HPF (None Seen); RBC,URINE 0-5 /HPF (0-5); SQUAMOUS EPITHELIAL CELL,UR NONE SEEN (<= Few)
--- NOTE | 2019-10-30 13:57 | CT Report ---
Reason: LUQ abdominal pain no BM Procedure Date: 10/30/2019 Accession Number: [id number] / [id number] Procedure: CT - Abdomen/Pelvis W CPT Code: Addended Final Report FULL RESULT: EXAM: CT ABDOMEN AND PELVIS WITH IV CONTRAST EXAM DATE: 10/30/2019. CLINICAL HISTORY: Left upper abdominal pain. No bowel movement. COMPARISONS: None. TECHNIQUE: Routine helical CT imaging was performed through the abdomen and pelvis. IV contrast: 100 cc of Optiray 320. Enteric contrast: None. Reconstructions: Coronal and sagittal. In accordance with CT protocol optimization, one or more of the following dose reduction techniques were utilized for this exam: automated exposure control, adjustment of mA and/or KV based on patient size, or use of iterative reconstructive technique. FINDINGS: Lung Bases: The lungs are clear. No pleural or pericardial effusion. Liver: Diffuse decreased attenuation of the parenchyma. No focal abnormality. Gallbladder/Bile Ducts: Layer of radiodense material in the dependent proximal gallbladder. No wall thickening, adjacent fluid collections, or bile duct dilatation. Spleen: Normal. Pancreas: Mild decreased attenuation about 4 cm of the tail, with infiltration of the adjacent fat and thickening of the adjacent perirenal fascia and infiltration of the fat posterior to the descending colon. Adrenal Glands: Normal. Kidneys: Normal. No masses, calculi or hydronephrosis. Peritoneal Cavity/Bowel: Moderate volume of feces in the colon. No small bowel dilatation. No adenopathy, free fluid, or free air. The appendix is well visualized and normal. Pelvic Organs: The urinary bladder appears normal. No adenopathy. No fluid collections. Vasculature: Atherosclerosis of the aorta and branch arteries, no aneurysm. Bones: Degenerative changes of the spine, most pronounced at L4-L5 and L5-S1. Degenerative changes of the sacroiliac joints. IMPRESSION: Findings consistent with pancreatitis of the tail of the pancreas. Recommend CT follow-up with the patient's clinical symptoms have improved, to assure resolution of the radiographic findings. Moderate volume of feces throughout the colon. Fatty infiltration of the liver. Layer of radiodense material in the proximal dependent gallbladder, either sludge or granular stones. No signs of cholecystitis or bile duct dilatation. Other chronic findings as described in the report. [facility]
[2019-10-30 18:26] VITALS: BP 158/89
== END 2019-10-30 16:20 | disposition home or self-care (01) ==
LOC: ED 08:58
DX: K59.01 Slow transit constipation (principal); F17.200 Nicotine dependence, unspecified, uncomplicated
CPT/HCPCS: 36415; 74177; 80053; 81001; 83690; 85025; 99282; 99284; Q9967; 81003; 87086

== ENCOUNTER 2022-03-21 16:15 | Outpatient (CLI) | payer MEDICARE, MEDICAID ==
--- NOTE | 2022-03-21 16:59 | XRAY Report ---
PROCEDURE: Finger(s) LT INDICATIONS: CELLULITIS OF LEFT FINGER TECHNIQUE: PA hand, 2 views of the middle finger acquired. COMPARISON: None. FINDINGS: Bones: No acute fractures or dislocations. No suspicious bony lesions. Degenerative changes in the wrist are most prominent at the triscaphe the joint and first and second carpometacarpal joints. No focal erosion or cortical destruction is seen. Soft tissues: No suspicious soft tissue calcifications. Soft tissue edema is seen in the middle fin mary. IMPRESSION: Nonspecific soft tissue edema in the middle finger. No radiographic signs of osteomyelitis. MRI could be performed for more sensitive evaluation if there is continued clinical concern. Reviewed by: Ayo Timmons MD on 03/21/2022 4:58 PM PDT Approved by: Ayo Timmons MD on 03/21/2022 4:58 PM PDT Station ID: [id number]
== END 2022-03-21 16:16 | disposition home or self-care (01) ==
LOC: DI 16:15
PROVIDERS: ATTEND Physician Assistant
DX: L03.012 Cellulitis of left finger (principal); L08.9 Local infection of the skin and subcutaneous tissue, unspecified

== ENCOUNTER 2022-08-28 11:28 | Outpatient (CLI) | payer MEDICARE, MEDICAID ==
[2022-08-28] MEDS: ALBUTEROL 1 PUFF INH STA (14:00)
== END 2022-08-28 11:29 | disposition home or self-care (01) ==
LOC: RT 11:28
PROVIDERS: ATTEND Nurse Practitioner Family
DX: Z87.891 Personal history of nicotine dependence (principal)
CPT/HCPCS: 94060; 94727; 94729